=== PATIENT | female | born 1970 | race Caucasian/White ===

== ENCOUNTER 2016-10-16 21:26 | Emergency (ER) | payer SELFPAY ==
[~2016-10-16] VITALS: Ht 170.2 cm; Wt 97.8 kg
[~2016-10-16 21:26] MED LIST: AMIT100T PO; ATEN50TA41 PO; DIPH25CA61 PO; ENAL10TA PO; FLUT16SP NAS; GUAI-44 PO; LEVO125T5 PO; METH750T2 PO; OMEP-110 PO; PHEN100C4 PO; QUET25TA PO; TOPI100T94 PO
[2016-10-16 21:27] VITALS: BP 159/86
[2016-10-16] MEDS ORDERED: ALBUTEROL/IPRATROPIUM 2.5MG/0.5MG, 3 ML NPPB ONE (22:30)
== END 2016-10-16 23:25 | disposition home or self-care (01) ==
LOC: ED 23:20
DX: J20.9 Acute bronchitis, unspecified (principal); K21.9 Gastro-esophageal reflux disease without esophagitis; I10 Essential (primary) hypertension; E03.9 Hypothyroidism, unspecified; G40.909 Epilepsy, unspecified, not intractable, without status epilepticus
CPT/HCPCS: 71020; 94640; 99284; J7620

== ENCOUNTER 2017-07-17 07:04 | Emergency (ER) | payer MEDICAID ==
[~2017-07-17] VITALS: Ht 170.2 cm; Wt 100.0 kg
[~2017-07-17 07:04] MED LIST changes: +GUAI-106 PO; -GUAI-44 PO; +TOPI100T8 PO; -TOPI100T94 PO
[2017-07-17] MEDS ORDERED: SODIUM CHLORIDE 0.9% 1,000 ML IV ONE (07:31)
[2017-07-17] MEDS ORDERED: MORPHINE SULFATE 4 MG/ML, 1ML ONE (07:33)
[2017-07-17] MEDS ORDERED: ONDANSETRON 2MG/ML, 2ML ONE (07:33)
[2017-07-17] MEDS ORDERED: FAMOTIDINE 20 MG/2 ML ONE (07:34)
[2017-07-17 07:59] LABS: HEMOGLOBIN 13.6 g/dL (11.7-16.4); WHITE BLOOD COUNT 5.6 x10^3/uL (3.4-10)
[2017-07-17] MEDS ORDERED: FAMOTIDINE 20 MG/2 ML IVP ONE (08:00)
[2017-07-17] MEDS ORDERED: SODIUM CHLORIDE 0.9% 1,000ML IVBOLUS ONE (08:00)
[2017-07-17] MEDS ORDERED: ONDANSETRON 2MG/ML, 2ML IVPush ONE (08:00)
[2017-07-17] MEDS ORDERED: MORPHINE SULFATE 4 MG/ML, 1ML IVPush PRN (08:00)
[2017-07-17 08:11] LABS: BLOOD UREA NITROGEN 17 mg/dL (7-18)
[2017-07-17 08:15] LABS: ASPARTATE AMINO TRANSFERASE 12 U/L (15-37)
[2017-07-17 09:06] VITALS: BP 101/51
== END 2017-07-17 10:11 | disposition home or self-care (01) ==
LOC: ED 09:02
DX: K80.70 Calculus of gallbladder and bile duct without cholecystitis without obstruction (principal); K21.9 Gastro-esophageal reflux disease without esophagitis; G43.909 Migraine, unspecified, not intractable, without status migrainosus; G40.909 Epilepsy, unspecified, not intractable, without status epilepticus; I10 Essential (primary) hypertension; E03.9 Hypothyroidism, unspecified; F43.10 Post-traumatic stress disorder, unspecified
CPT/HCPCS: 36415; 76700; 80053; 81001; 83690; 85025; 87086; 96361; 96374; 96375; 99285; J2405; J7030; S0028

== ENCOUNTER 2017-09-02 11:30 | Emergency (ER) | payer MEDICAID, OTHER ==
[~2017-09-02] VITALS: Ht 170.2 cm; Wt 101.0 kg
[2017-09-02 11:53] VITALS: BP 128/84
== END 2017-09-02 12:37 | disposition home or self-care (01) ==
LOC: ED 12:15
DX: B86 Scabies (principal); I10 Essential (primary) hypertension; G43.909 Migraine, unspecified, not intractable, without status migrainosus; F43.10 Post-traumatic stress disorder, unspecified; E03.9 Hypothyroidism, unspecified; K21.9 Gastro-esophageal reflux disease without esophagitis
CPT/HCPCS: 82962; 99283; Q0177

== ENCOUNTER 2017-11-08 09:38 | Emergency (ER) | payer MEDICAID, OTHER ==
[~2017-11-08] VITALS: Ht 170.2 cm; Wt 101.9 kg
[2017-11-08 09:48] VITALS: BP 114/65
[2017-11-08] MEDS ORDERED: KETOROLAC 30 MG/1 ML IM ONE (10:30)
[2017-11-08] MEDS ORDERED: METHOCARBAMOL 750 MG TABLET PO ONE (10:30)
[2017-11-08] MEDS ORDERED: QUET300T5 PO (10:31)
== END 2017-11-08 11:20 | disposition home or self-care (01) ==
LOC: ED 10:52
DX: J98.01 Acute bronchospasm (principal); E03.9 Hypothyroidism, unspecified; G40.909 Epilepsy, unspecified, not intractable, without status epilepticus; G43.909 Migraine, unspecified, not intractable, without status migrainosus; I10 Essential (primary) hypertension; K21.9 Gastro-esophageal reflux disease without esophagitis; F31.9 Bipolar disorder, unspecified; F43.10 Post-traumatic stress disorder, unspecified
CPT/HCPCS: 71046; 99284; J7512

== ENCOUNTER 2018-02-02 05:41 | Emergency (ER) | payer MEDICAID ==
[~2018-02-02] VITALS: Ht 170.2 cm; Wt 96.4 kg
[~2018-02-02 05:41] MED LIST changes: +QUET300T5 PO
[2018-02-02] MEDS ORDERED: PHEN200C3 PO (05:58)
[2018-02-02] MEDS ORDERED: BENZ2TAB6 PO (05:58)
[2018-02-02] MEDS ORDERED: LEVO125T5 PO (05:58)
[2018-02-02] MEDS ORDERED: HYDR10TA4 PO (05:58)
[2018-02-02] MEDS ORDERED: SODIUM CHLORIDE FLUSH 10ML SYR IVF ONE (06:00)
[2018-02-02] MEDS ORDERED: LORazepam 2 MG/ML, 1ML IVPush ONE (06:00)
[2018-02-02] MEDS ORDERED: hydrOXyzine 50MG TABLET ONE (06:18)
[2018-02-02 06:46] LABS: BASOPHILS # (AUTO) 0.06 x10^3/uL (0-0.1); BASOPHILS % (AUTO) 1 % (0-1); EOSINOPHILS # (AUTO) 0.03 x10^3/uL (0-0.4); EOSINOPHILS % (AUTO) 0 % (1-7); LYMPHOCYTES # (AUTO) 1.19 x10^3/uL (1-3.4); LYMPHOCYTES % (AUTO) 17 % (22-44); MD NO; MEAN CORPUSCULAR HEMOGLOBIN 30.6 pg (27.0-34.8); MEAN CORPUSCULAR HGB CONC 33.6 g/dL (32.4-35.8); MEAN CORPUSCULAR VOLUME 91.1 fL (80-100); MEAN PLATELET VOLUME 7.8 fL (7.4-10.4); MONOCYTES # (AUTO) 0.24 x10^3/uL (0.2-0.8); MONOCYTES % (AUTO) 4 % (2-9); NEUTROPHILS # (AUTO) 5.36 x10^3/uL (1.8-6.8); NEUTROPHILS % (AUTO) 78 % (42-75); PLATELET COUNT 268 x10^3/uL (130-400); RED BLOOD COUNT 4.83 x10^6/uL (3.82-5.3)
[2018-02-02 06:54] LABS: AMPHETAMINE SCREEN, URINE Negative (Negative); BARBITURATE SCREEN, URINE Negative (Negative); BENZODIAZEPINE SCREEN, URINE Negative (Negative); CANNABINOID SCREEN, URINE Positive (Negative); COCAINE SCREEN, URINE Negative (Negative); METHADONE SCREEN, URINE Negative (Negative); OPIATE SCREEN, URINE Negative (Negative)
[2018-02-02 06:59] LABS: ALANINE AMINOTRANSFERASE 22 U/L (12-78); ALBUMIN 3.4 g/dL (3.4-5.0); CALCIUM 8.5 mg/dL (8.5-10.1); CREATININE 0.87 mg/dL (0.55-1.02)
[2018-02-02 07:01] LABS: ALKALINE PHOSPHATASE 111 U/L (45-117); BILIRUBIN,TOTAL 0.3 mg/dL (0.2-1.0); TOTAL PROTEIN 6.6 g/dL (6.4-8.2)
[2018-02-02 07:03] LABS: ANION GAP 9 mmol/L (5-15); CHLORIDE 115 mmol/L (98-107)
[2018-02-02] MEDS ORDERED: PHENYTOIN SODIUM 50 MG/ML, 5ML IVPush ONE (07:30)
[2018-02-02] MEDS ORDERED: PHENYTOIN SODIUM 500 MG in SODIUM CHLORIDE 0.9% 100 ML IV ONE (08:30)
[2018-02-02] MEDS ORDERED: FILTER 0.22 MICRON FOR PHENYTOIN IV PRN (08:30)
[2018-02-02 08:35] VITALS: BP 108/73
== END 2018-02-02 09:45 | disposition home or self-care (01) ==
LOC: ED 05:54
DX: G40.419 Other generalized epilepsy and epileptic syndromes, intractable, without status epilepticus (principal); E03.9 Hypothyroidism, unspecified; I10 Essential (primary) hypertension; F31.9 Bipolar disorder, unspecified; F41.1 Generalized anxiety disorder; F17.200 Nicotine dependence, unspecified, uncomplicated
CPT/HCPCS: 36415; 80053; 80185; 80307; 85025; 93005; 96365; 99285; J1165; Q0177

== ENCOUNTER 2018-07-26 08:28 | Emergency (ER) | payer MEDICAID ==
[~2018-07-26] VITALS: Ht 170.2 cm; Wt 90.0 kg
[~2018-07-26 08:28] MED LIST changes: +BENZ2TAB6 PO; +HYDR10TA4 PO; +PHEN200C3 PO
[2018-07-26 08:30] VITALS: BP 119/70
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
--- NOTE | 2018-07-26 10:15 | NUR ---
REPORT RECEIVED, CARE ASSUMED. PT CLEARED FOR DISCHARGE, IN RESTROOM AT THIS TIME.
== END 2018-07-26 10:26 | disposition home or self-care (01) ==
LOC: ED 09:20
DX: S60.031A Contusion of right middle finger without damage to nail, initial encounter (principal); I10 Essential (primary) hypertension; X50.1XXA Overexertion from prolonged static or awkward postures, initial encounter; Y93.89 Activity, other specified; Y92.89 Other specified places as the place of occurrence of the external cause; Y99.8 Other external cause status
CPT/HCPCS: 99283

== ENCOUNTER 2019-08-06 16:28 | Emergency (ER) | payer MEDICAID ==
[~2019-08-06] VITALS: Ht 170.2 cm; Wt 94.7 kg
[~2019-08-06 16:28] MED LIST changes: -FLUT16SP NAS; +FLUT16SP24 NAS; -QUET25TA PO; +QUET25TA7 PO
[2019-08-06 16:40] VITALS: BP 128/72
[2019-08-06] MEDS ORDERED: DIPHENHYDRAMINE 25 MG CAPSULE ONE (17:00)
[2019-08-06] MEDS ORDERED: FAMOTIDINE 20 MG TABLET PO ONE (17:00)
[2019-08-06] MEDS ORDERED: DIPHENHYDRAMINE 25 MG CAPSULE PO ONE (17:00)
[2019-08-06] MEDS ORDERED: FAMOTIDINE 20 MG TABLET ONE (17:01)
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
--- NOTE | 2019-08-06 17:20 | NUR ---
PT TO RADIOLOGY
--- NOTE | 2019-08-06 18:25 | NUR ---
REVIEWED DISCHARGE INSTRUCTIONS AND OTC MEDICATION W/ PT, VERBALIZED UNDERSTANDING TO INFORMATION PROVIDED INCLUDING SKIN CARE, FOLLOW UP CARE, RETURN PRECAUTIONS AND MEDICATIONS. DENIED QUESTIONS/CONCERNS. PT DENIED DIFFICULTY BREATHING AT TIME OF DISCHARGE. PT AMBULATED FROM ED.
== END 2019-08-06 18:28 | disposition home or self-care (01) ==
LOC: ED 18:20
DX: S80.02XA Contusion of left knee, initial encounter (principal); S80.01XA Contusion of right knee, initial encounter; L50.9 Urticaria, unspecified; I10 Essential (primary) hypertension; E78.5 Hyperlipidemia, unspecified; K21.9 Gastro-esophageal reflux disease without esophagitis; F17.200 Nicotine dependence, unspecified, uncomplicated; W01.0XXA Fall on same level from slipping, tripping and stumbling without subsequent striking against object, initial encounter; Y93.89 Activity, other specified; Y92.89 Other specified places as the place of occurrence of the external cause; Y99.8 Other external cause status
CPT/HCPCS: 73564; 99283; Q0163